=== PATIENT | female | born 1955 | race Caucasian/White ===

== ENCOUNTER → 2019-12-21 | Outpatient (CLI) | payer OTHER ==
--- NOTE | 2019-12-21 12:32 | RAD ---
EXAM: Right knee, 2 views. HISTORY: Pain. COMPARISON: None. FINDINGS: 2 views of the right knee are obtained. There is mild tricompartmental spurring. There is no fracture, dislocation or subluxation. There is no significant joint effusion. IMPRESSION: Mild tricompartmental osteoarthritis of the right knee. Electronically signed by: Bianka Pang MD (12/21/2019 12:29 PM) [id number]
--- NOTE | 2019-12-21 12:33 | RAD ---
EXAM: Lumbar spine, 2 views. HISTORY: Pain. COMPARISON: None. FINDINGS: 2 views of the lumbar spine are obtained. There is minimal grade one antral listhesis of L4 and L5, measuring 2 mm. There is minimal decreased anterior vertebral body height at T12, likely developmental or degenerative. There is multilevel endplate remodeling at the lower thoracic and lumbar levels. There is facet arthropathy at the lower lumbar levels. IMPRESSION: Mild multilevel degenerative change. No acute osseous finding. Electronically signed by: Bianka Pang MD (12/21/2019 12:30 PM) [id number]
== END ==
LOC: RAD 10:50
PROVIDERS: ATTEND Anesthesiology Pain Medicine
DX: M17.11 Unilateral primary osteoarthritis, right knee (principal); M77.31 Calcaneal spur, right foot; M47.816 Spondylosis without myelopathy or radiculopathy, lumbar region; M43.16 Spondylolisthesis, lumbar region
CPT/HCPCS: 72100; 73560